=== PATIENT | male | born 1985 | race Caucasian/White ===

== ENCOUNTER 2021-08-03 19:06 | Emergency (ER) | payer SELFPAY ==
[~2021-08-03] VITALS: Ht 185.4 cm; Wt 99.1 kg
[2021-08-03] MEDS ORDERED: PANTOPRAZOLE 40MG VIAL (C9113 PER 1) IV ONE (20:40)
[2021-08-03 20:41] LABS: BASO % 0.2 % (0.0-1.0); EOS # 0.1 10^3/uL (0.0-0.5); EOS % 0.3 % (0.0-3.0); HEMATOCRIT 48.4 % (42.0-52.0); HEMOGLOBIN 16.5 g/dl (13.5-17.5); LYMPH # 1.8 10^3/uL (1.5-5.0); LYMPH % 10.9 % (24.0-44.0); MEAN CORPUSCULAR HEMOGLOBIN 29.4 pg (27.0-33.0); MEAN CORPUSCULAR HGB CONC 34.1 g/dl (32.0-36.5); MEAN CORPUSCULAR VOLUME 86.3 fl (80.0-96.0); MONO # 0.5 10^3/uL (0.0-0.8); MONO % 3.2 % (2.0-8.0); NEUTROPHILS # 14.3 10^3/uL (1.5-8.5); PLATELET COUNT, AUTOMATED 355 10^3/uL (150-450); RED BLOOD COUNT 5.61 10^6/uL (4.30-6.10); WHITE BLOOD COUNT 16.8 10^3/uL (4.0-10.0)
[2021-08-03] MEDS ORDERED: ISOVUE-370 76% 100ML VIAL As Ordered ONE (21:06)
[2021-08-03 21:16] LABS: ALBUMIN 3.9 GM/DL (3.2-5.2); ALT/SGPT 53 U/L (12-78); BILIRUBIN,DIRECT < 0.1 MG/DL (0.0-0.2); BILIRUBIN,TOTAL 0.3 MG/DL (0.2-1.0); LIPASE 88 U/L (73-393); TOTAL PROTEIN 7.7 GM/DL (6.4-8.2)
[2021-08-03] MEDS ORDERED: LR 1,000 ML IV ONE (21:25)
[2021-08-03] MEDS ORDERED: NS 1,000 ML IV ONE (21:30)
[2021-08-03] MEDS ORDERED: cefTRIAXone SOD 1 GM in D5W MINI-BAG PLUS 50 ML IV ONE (22:00)
[2021-08-03 22:37] LABS: RSV AMPLIFICATION NEGATIVE (NEGATIVE)
[2021-08-03 23:51] VITALS: BP 124/75
== END 2021-08-04 01:50 | disposition home or self-care (01) ==
LOC: M ED 19:06
DX: R10.9 Unspecified abdominal pain (principal); R11.2 Nausea with vomiting, unspecified; K56.7 Ileus, unspecified; F17.200 Nicotine dependence, unspecified, uncomplicated
CPT/HCPCS: 74177; 80047; 80076; 83605; 83690; 85025; 87040; 87631; 93041; 96365; 96366; 99284; C9113; J0696; Q9967

== ENCOUNTER → 2022-09-11 | Outpatient (REF) | payer BC | LOC: M LAB REF 12:02 | PROVIDERS: ATTEND Internal Medicine | DX: Z01.89 Encounter for other specified special examinations (principal); G60.9 Hereditary and idiopathic neuropathy, unspecified ==

== ENCOUNTER → 2023-02-03 | Outpatient (CLI) | payer BC | LOC: M WUC 14:57 | PROVIDERS: ATTEND Internal Medicine | DX: M25.561 Pain in right knee (principal) ==

== ENCOUNTER → 2024-08-24 | Outpatient (REF) | payer OTHER ==
[2024-08-24 15:30] LABS: PERCENT SATURATION 24.9 % (19.7-50.0)
[2024-08-24 15:33] LABS: FERRITIN 136.2 NG/ML (10.5-307.3)
== END ==
LOC: M LAB REF 13:15
PROVIDERS: ATTEND Internal Medicine
DX: G62.9 Polyneuropathy, unspecified (principal); K62.5 Hemorrhage of anus and rectum